=== PATIENT | female | born 1935 | race Caucasian/White ===

== ENCOUNTER → 2016-08-14 | Outpatient (CLI) | payer OTHER ==
[~2016-08-14] MED LIST: ALPRAZOLAM0.5 MG PO; ASPIR 8181 MG PO; CAL MAG ZINC +1 EACH PO; CELLCEPT500 MG PO; CENTRUM CHEWAB1 EACH PO; DETROL1 MG PO; LEXAPRO20 MG PO; LIPITOR TAB 2020 MG PO; MESTINON TAB 6060 MG PO; NABUMETONE750 MG PO; PERCOCET 5-3251 EACH PO; PREVACID30 MG PO; TYLENOL W/CODEIN1 E1 PO; VITAMIN D400 UNI1 PO; [UNRECOGNIZED DRUG - OTHER] PO
[2016-08-14 14:36] LABS: HEMOGLOBIN 11.1 gm/dl (12.3-15.3); RED BLOOD COUNT 3.76 M/UL (4.00-5.10)
[2016-08-14 14:57] LABS: BUN/CREATININE RATIO 40 (0-10)
== END ==
LOC: OPSV2 12:13
PROVIDERS: Emergency Medicine
DX: Z01.810 Encounter for preprocedural cardiovascular examination (principal); Z01.812 Encounter for preprocedural laboratory examination; N39.0 Urinary tract infection, site not specified; S32.019A Unspecified fracture of first lumbar vertebra, initial encounter for closed fracture
CPT/HCPCS: 36415; 80048; 85027; 87077; 87086; 87186; 93005

== ENCOUNTER → 2016-08-19 | Outpatient (CLI) | payer OTHER | LOC: EXRD 14:28 → KOH-I 08-20 10:30 | DX: S32.020A Wedge compression fracture of second lumbar vertebra, initial encounter for closed fracture (principal) | CPT/HCPCS: 77080 ==

== ENCOUNTER → 2016-08-20 | Day surgery (SDC) | payer OTHER ==
[~2016-08-20] VITALS: Ht 157.5 cm; Wt 66.2 kg
== END | disposition home or self-care (01) ==
LOC: OR 09:53
PROVIDERS: Orthopaedic Surgery
PROC: 0QU03JZ Supplement Lumbar Vertebra with Synthetic Substitute, Percutaneous Approach (ICD-10-PCS; 2016-08-20)
PROC: 0QB03ZX Excision of Lumbar Vertebra, Percutaneous Approach, Diagnostic (ICD-10-PCS; 2016-08-20)
PROC: 0QS03ZZ Reposition Lumbar Vertebra, Percutaneous Approach (ICD-10-PCS; principal; 2016-08-20 10:30)
DX: S32.019A Unspecified fracture of first lumbar vertebra, initial encounter for closed fracture (principal); S42.92XA Fracture of left shoulder girdle, part unspecified, initial encounter for closed fracture; G70.00 Myasthenia gravis without (acute) exacerbation; M81.0 Age-related osteoporosis without current pathological fracture; N13.30 Unspecified hydronephrosis; E78.5 Hyperlipidemia, unspecified; F41.9 Anxiety disorder, unspecified; M19.90 Unspecified osteoarthritis, unspecified site; H40.9 Unspecified glaucoma; G89.29 Other chronic pain; Z85.3 Personal history of malignant neoplasm of breast; Z90.49 Acquired absence of other specified parts of digestive tract; Z90.710 Acquired absence of both cervix and uterus; Z79.52 Long term (current) use of systemic steroids; Z79.82 Long term (current) use of aspirin; Z79.899 Other long term (current) drug therapy; Z87.440 Personal history of urinary (tract) infections; Z88.2 Allergy status to sulfonamides; W10.9XXA Fall (on) (from) unspecified stairs and steps, initial encounter; Y93.01 Activity, walking, marching and hiking
CPT/HCPCS: 20240; 93005; J0690; J1100; J2270; J2405; J2710; J3010; J7120; Q9962